=== PATIENT | female | born 1990 | race American Indian/Alaskan Native ===

== ENCOUNTER 2017-04-04 21:20 | Inpatient (IN) | payer MEDICAID ==
[2017-04-04] MEDS ORDERED: STADOL IV PRN (21:59)
[2017-04-04] MEDS ORDERED: NARCAN 0.4 MG/1 ML IV PRN (21:59)
[2017-04-04] MEDS ORDERED: XYLOCAINE 2% INFILTRATI ONE (21:59)
[2017-04-04] MEDS ORDERED: BRETHINE IVP PRN (21:59)
[2017-04-04] MEDS ORDERED: ePHEDrine SULFATE IV PRN ×2 (21:59→23:30)
[2017-04-04] MEDS ORDERED: ZOFRAN IV PRN (21:59)
[2017-04-04] MEDS ORDERED: SUBLIMAZE IV PRN (21:59)
[2017-04-04] MEDS ORDERED: PHENERGAN PO PRN (21:59)
[2017-04-04] MEDS ORDERED: MINERAL OIL PO PRN (21:59)
[2017-04-04] MEDS ORDERED: BRETHINE SUB-Q PRN (21:59)
[2017-04-04] MEDS ORDERED: PITOCin/NS 20 UNIT/1000ML DRIP 20 UNITS/1,000 ML BAG IV SCH (22:00)
[2017-04-04] MEDS ORDERED: PITOCin/NS 30 UNIT/500ML 30 UNITS/500 ML BAG IV SCH ×2 (22:00)
[2017-04-04] MEDS ORDERED: SUBLIMAZE ONE (22:01)
--- NOTE | 2017-04-04 22:08 | History and Physical Report ---
History of Present Illness Date of examination: 04/04/17 Date of admission: 04/04/17 21:59 Chief complaint: Labor History of present illness: Pt is a 26yo BF EDC 04/11/17; EGA 39 0/7 weeks presents to L&D complaining of RUC's q 3-4 mins. She received care at [facility] since 14 weeks and course has been unremarkable except for anemia. records are available and GBS is negative. Past History Past Medical History: no pertinent history Past Surgical History: no surgical history FOOD AND BEVERAGE ASSISTANT History: chlamydia, trichomonas Family/Genetic History: cancer (colon) Social history: no significant social history, single - Obstetrical History Expected Date of Delivery: 04/11/17 Actual Gestation: 39 Week(s) 0 Day(s) : 6 Medications and Allergies Allergies Allergy/AdvReac Type Severity Reaction Status Date / Time No Known Allergies Allergy Verified 04/04/17 22:10 Active Meds: Active Medications Butorphanol Tartrate (Stadol) 2 mg IV Q2H PRN PRN Reason: Pain , Severe (7-10) Ephedrine Sulfate (Ephedrine Sulfate) 10 mg IV Q2M PRN PRN Reason: Hypotension Stop: 04/04/17 22:04 Fentanyl (Sublimaze) 100 mcg IV Q2H PRN PRN Reason: Labor Pain Lactated Ringer's (Lactated Ringers) 1,000 mls @ 125 mls/hr IV DIRECT DULCE Oxytocin/Sodium Chloride (Pitocin/Ns 20 Unit/1000ml Drip) 20 units in 1,000 mls @ 125 mls/hr IV DIRECT DULCE Oxytocin/Sodium Chloride (Pitocin/Ns 30 Unit/500ml) 30 units in 500 mls @ 1 mls /hr IV TITR DULCE; 1 MILLIUNITS/MIN PRN Reason: Protocol Oxytocin/Sodium Chloride (Pitocin/Ns 30 Unit/500ml) 30 units in 500 mls @ 4 mls /hr IV TITR DULCE PRN Reason: Protocol Lidocaine (Xylocaine 2%) 20 ml INFILTRATI ONCE ONE Stop: 04/04/17 22:00 Mineral Oil (Mineral Oil) 30 ml PO QHS PRN PRN Reason: Constipation Naloxone HCl (Narcan 0.4 Mg/1 Ml) 0.1 mg IV Q2MIN PRN PRN Reason: Res Rate </= 8 or 02 SAT < 92% Ondansetron HCl (Zofran) 4 mg IV Q8H PRN PRN Reason: Nausea And Vomiting Promethazine HCl (Phenergan) 25 mg PO Q6H PRN PRN Reason: Nausea And Vomiting Terbutaline Sulfate (Brethine) 0.25 mg SUB-Q ONCE PRN PRN Reason: Hyperstimulation/Hypertonicity Stop: 04/04/17 22:00 Terbutaline Sulfate (Brethine) 0.25 mg IVP ONCE PRN PRN Reason: Hyperstimulation/Hypertonicity Stop: 04/04/17 22:00 Review of Systems All systems: negative - Physical Exam Breasts: Positive: deferred Cardiovascular: Regular rate, Other Abdomen: Positive: normal appearance Genitourinary (Female): Positive: normal external genitalia Uterus: Positive: enlarged Extremities: Positive: normal - Obstetrical FHR: category 1 Uterine Contraction Monitor Mode: External Cervical Dilatation: 8 Cervical Effacement Percentage: 100 station: -2 Uterine Contraction Pattern: Regular Uterine Tone Measurement Phase: Contraction Uterine Contraction Intensity: Strong/Firm Results Result Diagrams: 04/04/17 21:50 All other labs normal. Assessment and Plan - Patient Problems (1) 39 weeks gestation of Onset Date: 04/04/17 Current Visit: Yes Status: Acute Plan to address problem: A: IUP @ 39 0/7 weeks in labor P: Admit to L&D for expectant vaginal delivery
[2017-04-04 22:17] LABS: Hematocrit 35.5 % (30.3-42.9); Mean Corpuscular HGB Conc 34 % (30-34); Mean Corpuscular Hemoglobin 33 pg (28-32); Mean Corpuscular Volume 96 fl (79-97); Platelet Count 176 K/mm3 (140-440); Red Blood Count 3.69 M/mm3 (3.65-5.03); White Blood Count 16.4 K/mm3 (4.5-11.0)
[2017-04-04] MEDS: LACTATED RINGERS 1,000 ML IV SCH ×2 (22:45→23:32)
[2017-04-04] MEDS ORDERED: NARCAN 2 MG/2 ML IV PRN (23:30)
--- NOTE | 2017-04-04 23:30 | Anesthesia Consultation ---
Anesthesia Consult and Med Hx Date of service: 04/04/17 - Airway Anesthetic Teeth Evaluation: Good ROM Head & Neck: Adequate Mental/Hyoid Distance: Adequate Mallampati Class: Class II Intubation Access Assessment: Probably Good - Pulmonary Exam CTA: Yes - Cardiac Exam Cardiac Exam: RRR - Pre-Operative Health Status ASA Pre-Surgery Classification: ASA2 Proposed Anesthetic Plan: Epidural - Pulmonary Hx Asthma: No - Cardiovascular System Hx Hypertension: No - Central Nervous System Hx Seizures: No Hx Psychiatric Problems: No - Endocrine Hx Renal Disease: No Hx Hypothyroidism: No Hx Hyperthyroidism: No - Hematic Hx Anemia: Yes Hx Sickle Cell Disease: No - Other Systems Hx Alcohol Use: No
[2017-04-04] MEDS ORDERED: fentaNYL-BUPIV 2 MCG/ML-0.125% 200 MCG/100 ML BAG EPIDURAL SCH (23:45)
--- NOTE | 2017-04-05 02:07 | Procedure Note ---
OB Delivery Note - Delivery Date of Delivery: 04/05/17 Surgeon: RUBEN ORDONEZ Estimated blood loss: 100cc - Vaginal Delivery presentation: vertex Delivery position: OA Intrapartum events: none Delivery induction: AROM Delivery augmentation: rupture of membranes Delivery monitor: external FHT, external uterine Route of delivery: Delivery placenta: spontaneous Delivery cord: 3 umbilical vessels Episiotomy: none Delivery laceration: 1st degree (right labial) Delivery repair: vicryl Anesthesia: epidural Delivery comments: Infant delivered OA and placed on Mom's chest for [id number] bonding and delayed cord clamping - A at 1 minute: 8 at 5 minutes: 9 Gender: Female (3151gms)
[2017-04-05] MEDS ORDERED: TYLENOL PO PRN (02:08)
[2017-04-05] MEDS ORDERED: DULCOLAX PR PRN (02:08)
[2017-04-05] MEDS ORDERED: BENADRYL PO PRN (02:08)
[2017-04-05] MEDS ORDERED: LANSINOH TP PRN (02:08)
[2017-04-05] MEDS ORDERED: NORCO 5/325 PO PRN (02:08)
[2017-04-05] MEDS ORDERED: ZOFRAN IV PRN (02:08)
[2017-04-05] MEDS ORDERED: PHENERGAN PR PRN (02:08)
[2017-04-05] MEDS ORDERED: PHENERGAN PO PRN (02:08)
[2017-04-05] MEDS ORDERED: MILK OF MAGNESIA PO PRN (02:08)
[2017-04-05] MEDS ORDERED: TUCKS PAD TP PRN (02:08)
[2017-04-05] MEDS ORDERED: PITOCin/NS 20 UNIT/1000ML DRIP 20 UNITS/1,000 ML BAG IV SCH (03:00)
[2017-04-05] MEDS ORDERED: SODIUM CHLORIDE FLUSH SYRINGE 10 ML IV PRN (03:00)
[2017-04-05] MEDS: MOTRIN PO SCH ×4 (06:11→23:21)
[2017-04-05] MEDS: PRENATAL VITAMIN PO SCH (09:56)
[2017-04-05] MEDS: FEOSOL PO SCH ×2 (09:56→23:21)
[2017-04-05] MEDS: COLACE PO SCH ×2 (09:57→23:21)
[2017-04-05 13:56] LABS: Hematocrit 29.9 % (30.3-42.9); Hemoglobin 10.1 gm/dl (10.1-14.3)
[2017-04-06] MEDS ORDERED: M-M-R II VACCINE SUB-Q ONE (02:08)
[2017-04-06] MEDS: MOTRIN PO SCH ×2 (05:51→12:56)
[2017-04-06] MEDS ORDERED: BOOSTRIX IM ONE (06:00)
[2017-04-06] MEDS: COLACE PO SCH (10:27)
[2017-04-06] MEDS: PRENATAL VITAMIN PO SCH (10:27)
[2017-04-06] MEDS: FEOSOL PO SCH (10:27)
--- NOTE | 2017-04-06 13:57 | Progress Note ---
Assessment and Plan A: PPD # 1 stable P; Plan discharge today Subjective - Subjective Date of service: 04/06/17 Principal diagnosis: Patient reports: appetite normal : doing well Objective - Vital Signs Latest vital signs: Vital Signs Temp Pulse Resp BP 04/06/17 08:15 97.8 F 74 18 113/75 04/05/17 23:55 98.4 F 76 20 116/75 04/05/17 17:30 98.3 F 72 18 111/69 Intake and Output 04/05/17 04/06/17 04/06/17 22:59 06:59 14:59 Intake Total 240 240 360 Balance 240 240 360 Intake: Oral 240 360 Intake, Free Water 240 Other: Total, Intake Amount 240 360 # Voids Void 1 1 - Exam Breasts: Present: deferred Cardiovascular: Present: Regular rate Lungs: Present: Clear to auscultation Abdomen: Present: soft Vulva: both: normal Uterus: Present: fundal height below umbilicus Extremities: Present: normal Deep Tendon Reflex Grade: Normal +2 - Labs Labs: Abnormal lab results 04/05/17 Range/Units 13:37 Hct 29.9 L (30.3-42.9) %
--- NOTE | 2017-04-06 13:58 | Discharge Summary ---
Providers - Providers Date of Admission: 04/04/17 21:59 Date of discharge: 04/06/17 Attending physician: RUBEN BUSTAMANTE MD Primary care physician: PARA MACHINE OPERATOR Hospitalization Reason for admission: active labor Delivery: Episiotomy: none Laceration: 1st degree complications: none Discharge diagnosis: IUP at term delivered [place] baby: female Condition at discharge: Good Disposition: DC-01 TO HOME OR SELFCARE Plan - Provider Discharge Summary Activity: routine, no sex for 6 weeks, no strenuous exercise Diet: routine Instructions: routine Additional instructions: [] Smoking cessation referral if applicable(refer to patient education folder for contact #) [] Refer to [facility] Booklet Call your doctor immediately for: * Fever > 100.5 * Heavy vaginal bleeding ( >1 pad per hour) * Severe persistent headache * Shortness of breath * Reddened, hot, painful area to leg or breast * Drainage or odor from incision. * Keep incision clean and dry at all times and follow doctor's instructions regarding bathing/showering - Follow up plan Follow up: [facility] [Provider Group] - 6 Weeks
[2017-04-06 16:32] VITALS: BP 133/85
== END 2017-04-06 17:30 | disposition home or self-care (01) | DRG 775 ==
LOC: TRG 21:20 → LD 21:59 → OB 04-05 03:16
PROVIDERS: ADMIT Obstetrics & Gynecology; ATTEND Obstetrics & Gynecology
PROC: 10E0XZZ Delivery of Products of Conception, External Approach (ICD-10-PCS; principal; 2017-04-05)
PROC: 0UQMXZZ Repair Vulva, External Approach (ICD-10-PCS; 2017-04-05)
PROC: 10907ZC Drainage of Amniotic Fluid, Therapeutic from Products of Conception, Via Natural or Artificial Opening (ICD-10-PCS; 2017-04-05)
PROC: 3E0S3CZ (ICD-10-PCS; 2017-04-05)
PROC: 00HU33Z Insertion of Infusion Device into Spinal Canal, Percutaneous Approach (ICD-10-PCS; 2017-04-05)
PROC: 3E0234Z Introduction of Serum, Toxoid and Vaccine into Muscle, Percutaneous Approach (ICD-10-PCS; 2017-04-06)
DX: O75.5 Delayed delivery after artificial rupture of membranes (principal); O70.0 First degree perineal laceration during delivery; O99.02 Anemia complicating childbirth; D64.9 Anemia, unspecified; Z3A.39 39 weeks gestation of pregnancy; Z37.0 Single live birth; Z23 Encounter for immunization
CPT/HCPCS: 36415; 85014; 85018; 85027; 86850; 86900; 86901; 99211; A6250; G0463; J0595; J2590; J3010; J7120

== ENCOUNTER 2020-07-26 21:39 | Emergency (ER) | payer MEDICAID ==
[2020-07-27] MEDS ORDERED: METOCLOPRAMIDE 10 MG/2 ML INJ IV ONE (01:28)
[2020-07-27] MEDS ORDERED: FAMOTIDINE 20 MG/2 ML INJ IV ONE (01:28)
[2020-07-27] MEDS ORDERED: diphenhydrAMINE 50 MG/ML VIAL IV ONE (01:28)
[2020-07-27] MEDS ORDERED: SODIUM CHLORIDE 0.9% 1000 ML 1,000 ML IV ONE (01:29)
[2020-07-27 02:28] LABS: Basophils % (Auto) 0.5 % (0.0-1.8); Eosinophils % (Auto) 0.5 % (0.0-4.3); Hematocrit 33.7 % (30.3-42.9); Hemoglobin 11.7 gm/dl (10.1-14.3); Lymphocytes # (Auto) 2.5 K/mm3 (1.2-5.4); Lymphocytes % (Auto) 27.9 % (13.4-35.0); Mean Corpuscular HGB Conc 35 % (30-34); Mean Corpuscular Volume 95 fl (79-97); Monocytes # (Auto) 0.5 K/mm3 (0.0-0.8); Monocytes % (Auto) 6.2 % (0.0-7.3); Platelet Count 194 K/mm3 (140-440); Red Blood Count 3.54 M/mm3 (3.65-5.03); Red Cell Distribution Width 12.5 % (13.2-15.2)
[2020-07-27 02:49] LABS: Alanine Aminotransferase 26 units/L (7-56); Albumin 4.1 g/dL (3.9-5); Blood Urea Nitrogen 10 mg/dL (7-17); Calcium 9.3 mg/dL (8.4-10.2); Hemolysis Index 1
[2020-07-27 02:51] LABS: BUN/Creatinine Ratio 17
--- NOTE | 2020-07-27 04:37 | Emergency Department Report ---
ED N/V/D HPI - General Chief complaint: Nausea/Vomiting/Diarrhea Stated complaint: VOMITING 13 WK Source: patient Mode of arrival: Ambulatory Limitations: No Limitations - History of Present Illness Initial comments: Patient is a A0 29-year-old -Maced[place] female with no past medical history who is approximately 13 weeks gestation and who presents to the ED with complaint of acute onset intractable nausea and vomiting intermittently for the last 2 weeks worse in the last 4 days. Patient states that she has not been able to keep anything down for the last 3 days because of intractable nausea and vomiting. Patient states that her COMPUTER TECHNOLOGY INSTRUCTOR physician had called in Phenergan for her but she is yet to pick the prescription up from the pharmacy. Patient mo es abdominal pain, vaginal bleeding, vaginal discharge, dizziness, syncope, headache, chest pain, shortness of breath, sore throat, dysuria, urinary frequency and urgency, vaginal discharge, back pain, fever, chills, hematemesis or cough. MD complaint: nausea, vomiting, other (approximately 13 weeks gestation) -: Sudden, week(s) (2) Description of Vomiting: food contents, watery Associated Abdominal Pain: No Location: diffuse Radiation: none Severity: severe Pain Scale: 0 Quality: dull Consistency: intermittent Improves with: none Worsens with: eating Context: other (Approximately 13 weeks gestation) Associated Symptoms: denies other symptoms, loss of appetite, malaise, nausea/vomiting. denies: myalgias, cough, diaphoresis, fever/chills, headaches, rash, dysuria, shortness of breath, syncope, weakness - Related Data Previous Rx's Medication Instructions Recorded Last Taken Type Famotidine [Pepcid] 20 mg PO Q12H #60 tablet 07/27/20 Unknown Rx Promethazine HCl [Phenergan SUPPOS] 25 mg RC Q6H PRN #20 supp.rect 07/27/20 Unknown Rx Allergies Allergy/AdvReac Type Severity Reaction Status Date / Time No Known Allergies Allergy Verified 04/04/17 22:10 ED Review of Systems ROS: Stated complaint: VOMITING 13 WK Other details as noted in HPI Constitutional: denies: chills, fever Eyes: denies: eye pain, eye discharge, vision change ENT: denies: ear pain, throat pain Respiratory: denies: cough, shortness of breath, wheezing Cardiovascular: denies: chest pain, palpitations Endocrine: no symptoms reported Gastrointestinal: nausea, vomiting. denies: abdominal pain, diarrhea Genitourinary: denies: urgency, dysuria, discharge Musculoskeletal: denies: back pain, joint swelling, arthralgia Skin: denies: rash, lesions Neurological: denies: headache, weakness, paresthesias Psychiatric: denies: anxiety, depression Hematological/Lymphatic: denies: easy bleeding, easy bruising ED Past Medical Hx - Past Medical History Previous Medical History?: No Hx Hypertension: No Hx Congestive Heart Failure: No Hx Diabetes: No Hx Deep Vein Thrombosis: No Hx Renal Disease: No Hx Sickle Cell Disease: No Hx Seizures: No Hx Asthma: No Hx COPD: No Hx HIV: No - Surgical History Past Surgical History?: No - Social History Smoking Status: Never Smoker Substance Use Type: None - Medications Home Medications: Home Medications Medication Instructions Recorded Confirmed Last Taken Type Famotidine [Pepcid] 20 mg PO Q12H #60 tablet 07/27/20 Unknown Rx Promethazine HCl [Phenergan SUPPOS] 25 mg RC Q6H PRN #20 supp.rect 07/27/20 Unknown Rx ED Physical Exam - General Limitations: No Limitations General appearance: alert, in no apparent distress - Head Head exam: Present: atraumatic, normocephalic, normal inspection - Eye Eye exam: Present: normal appearance, PERRL, EOMI Pupils: Present: normal accommodation - ENT ENT exam: Present: normal exam, normal orophraynx, mucous membranes moist, TM's normal bilaterally, normal external ear exam - Neck Neck exam: Present: normal inspection, full ROM. Absent: tenderness, meningismus - Respiratory Respiratory exam: Present: normal lung sounds bilaterally. Absent: respiratory distress, wheezes, rales, rhonchi, chest wall tenderness, accessory muscle use, decreased breath sounds, prolonged expiratory - Cardiovascular Cardiovascular Exam: Present: regular rate, normal rhythm, normal heart sounds. Absent: systolic murmur, diastolic murmur, rubs, gallop - GI/Abdominal GI/Abdominal exam: Present: soft, normal bowel sounds. Absent: tenderness, guarding, rebound, hyperactive bowel sounds, hypoactive bowel sounds, organomegaly - Extremities Exam Extremities exam: Present: normal inspection, full ROM, normal capillary refill - Back Exam Back exam: Present: normal inspection, full ROM. Absent: tenderness, CVA tenderness (R), CVA tenderness (L), muscle spasm, paraspinal tenderness, vertebral tenderness - Neurological Exam Neurological exam: Present: alert, oriented X3, CN II-XII intact, normal gait, reflexes normal - Psychiatric Psychiatric exam: Present: normal affect, normal mood - Skin Skin exam: Present: warm, dry, intact, normal color. Absent: rash ED Course Vital Signs 07/26/20 21:43 Temperature 98.0 F Pulse Rate 81 Respiratory 18 Rate Blood Pressure 137/70 O2 Sat by Pulse 95 Oximetry ED Medical Decision Making - Lab Data Result diagrams: 07/27/20 01:50 07/27/20 01:50 - Medical Decision Making This is a A0 29-year-old -[place]aced[place] female with no past medical history who is approximately 13 weeks gestation and who presents to the ED with complaint of acute onset intractable nausea and vomiting intermittently for the last 2 weeks worse in the last 4 days. Patient states that she has not been able to keep anything down for the last 3 days because of intractable nausea and vomiting. Patient states that her COMPUTER TECHNOLOGY INSTRUCTOR physician had called in Phenergan for her but she is yet to pick the prescription up from the pharmacy. In the ED, patient is alert and oriented x3 and is not in distress with normal vital signs. Lab test results were reviewed and are all nonactionable. Patient received antiemetics in the ED as well as antacids and normal saline 1 L IV bolus x1. On reevaluation, patient was able to keep oral fluids in the ED and therefore passed oral fluid challenge. Patient was therefore discharged home on medications and advised to follow-up with her COMPUTER TECHNOLOGY INSTRUCTOR physician in 3 to 5 days for reevaluation. Patient was advised to maintain a clear liquid diet for 12 to 24 hours even as he takes medications for nausea and vomiting at home. Patient was advised to return to the ED immediately if symptoms get worse. - Differential Diagnosis Hyperemesis gravidarum, dehydration, gastroenteritis, UTI, gastritis Critical care attestation.: If time is entered above; I have spent that time in minutes in the direct care of this critically ill patient, excluding procedure time. ED Disposition Clinical Impression: Moderate hyperemesis gravidarum Disposition: TO HOME OR SELFCARE Is pt being admited?: No Does the pt Need Aspirin: No Condition: Stable Instructions: Hyperemesis Gravidarum, Morning Sickness, [id number] Additional Instructions: All lab test results were reviewed and are all nonactionable. Therefore mainta in a clear liquid diet for 12 to 24 hours, take medications for nausea and vomiting and follow-up with your COMPUTER TECHNOLOGY INSTRUCTOR physician in 3 to 5 days for reevaluation. Return to the ED immediately if symptoms get worse. Prescriptions: Famotidine [Pepcid] 20 mg PO Q12H #60 tablet Promethazine HCl [Phenergan SUPPOS] 25 mg RC Q6H PRN #20 supp.rect PRN Reason: Nausea And Vomiting Referrals: MATTHEW CARTAGENA MD [Staff Physician] - 3-5 Days Time of Disposition: 04:38 Print Language: KOREAN
[2020-07-27 04:56] LABS: Bacteria,Urine 1+ /HPF (Negative); Bilirubin,Urine NEG (Negative); Blood,Urine NEG (Negative); Color,Urine Yellow (Yellow); Mucus,Urine 3+ /HPF
[2020-07-27 07:06] VITALS: BP 116/70
== END 2020-07-27 05:08 | disposition home or self-care (01) ==
LOC: ED 21:39
DX: O21.0 Mild hyperemesis gravidarum (principal); O21.8 Other vomiting complicating pregnancy; Z79.899 Other long term (current) drug therapy; Z3A.13 13 weeks gestation of pregnancy
CPT/HCPCS: 36415; 80053; 81001; 84703; 85025; 96361; 96374; 96375; 99283; J1200; J2765; J7030